=== PATIENT | male | born 1980 | race African-American/Black ===

== ENCOUNTER 2021-06-03 17:39 | Emergency (ER) | payer OTHER, SELFPAY ==
--- NOTE | ~2021-06-03 | CT_ITS ---
EXAMINATION: CT HEAD WITHOUT CONTRAST CLINICAL INFORMATION: New onset seizure. COMPARISON: CT head dated from 05/04/2019. TECHNIQUE: Contiguous axial imaging was performed from the skull base to vertex without intravenous administration of contrast. This CT examination was performed using dose optimization techniques as appropriate, variously including the following: *Automated exposure control *Adjustment of mA and/or kV according to patient size (this includes techniques or standardized protocols for targeted exams where dose is matched to indication/reason for exam; i.e. extremities or head) *Use of iterative reconstruction technique DLP: 692 mGy-cm FINDINGS: Redemonstration of encephalomalacia/gliosis in the left frontal lobe. There is no evidence of acute intracranial hemorrhage or edematous territorial infarction. A few foci of hypoattenuation in the periventricular and deep white matter are consistent with mild microangiopathy. Engle-white matter differentiation is preserved. The ventricles are normal in size and configuration. No evidence for obstructive hydrocephalus. No abnormal mass effect or midline shift. No extra-axial fluid collections. Redemonstration of the small fixation plate in the left frontal skull (3:33). No acute osseous abnormalities. New near complete opacification of the left frontal sinus and left ethmoid air cells. There is also significant mucosal thickening of the left maxillary sinus. To a lesser extent, there is also opacification of some posterior right ethmoid air cells. The mastoids are clear. CT/CT head/brain wo con IMPRESSION: 1. No evidence of acute intracranial hemorrhage or edematous territorial infarction. 2. Encephalomalacia/gliosis in the left anterior frontal lobe is redemonstrated. 3. New paranasal sinus disease. Chronic clinically for the presence of acute sinusitis.
[2021-06-03 18:29] VITALS: BP 144/84; PULSE 102; O2SAT 99
--- NOTE | 2021-06-03 18:34 | ED.SEIZURE ---
HPI - Seizure General Chief Complaint: Seizure Stated Complaint: Seizure? Time Seen by Provider: 06/03/21 18:34 Source: patient Mode of arrival: EMS Limitations: no limitations History of Present Illness HPI Narrative: This is a 40-year-old male no known medical history presents to the emergency department via EMS with concerns that patient had a seizure just prior to his arrival. Patient tells me that the last thing he remembers is sitting in his living room, and then he remembers waking up on ambulance stretcher. He tells me he has had a seizure once before. This seizure was witnessed by his roommate, the story is unclear of whether not patient hit his head. From report received by EMS it appears as though this was a tonic clonic seizure with a brief postictal episodes. Per EMS patient did fall. Patient is now alert and oriented x3. He has no complaints. He tells me he feels okay. He denies drugs, alcohol and tobacco use. Denies trauma to head. MD complaint: seizure Onset (ago): minute(s) (30) Description of Episode: loss of consciousness and tonic-clonic movement Witnessed: Yes - by Other (roommate) Seizure History: Yes (one seziure in the past) Place: Home (Patient was in his living room when this occurred) Possible Precipitating Event: none Associated symptoms: denies other symptoms Treatments prior to arrival: none Related Data Allergies Allergy/AdvReac Type Severity Reaction Status Date / Time No Known Allergies Allergy Unverified 02/07/20 19:47 [No Known Allergies*] Review of Systems Review of Systems: Appearance: Alert.? Oriented X3.? No acute distress.? Head: Normocephalic, atraumatic, no step-offs or deformities Eyes: Pupils equal, round and reactive to light.? ENT: Pharynx normal.? Neck: Normal inspection.? Neck supple.? CVS: Normal heart rate and rhythm.? Pulses normal.? Respiratory: No respiratory distress.? Breath sounds normal.? Abdomen: Soft and nontender.? Skin: Skin warm and dry.? Normal skin color.? Normal skin turgor.? Extremities: No lower extremity edema.? No calf ttp. 5/5 strength to bilateral upper and lower extremities Back: No midline tenderness, no C-spine tenderness, full range of motion, no CVA tenderness bilaterally Neuro: Oriented X 3.? No motor deficit.? No sensory deficit. Yes all other systems are reviewed and are negative [facility] Past Medical History Attestation statement: The following information was validated with the patient. Source: old records reviewed and nursing notes reviewed Social History Social History Advance Directives: No Physical Exam Vital Signs: Vital Signs: Last Vital Signs Temp 98.0 F 06/03/21 18:52 Pulse 75 06/03/21 18:52 Resp 20 06/03/21 18:52 BP 125/88 06/03/21 18:52 Pulse Ox 97 06/03/21 18:52 BMI result Body Mass Index 19.3 vss Appearance: Alert.? Oriented X3.? No acute distress.? Head: Normocephalic, atraumatic, no step-offs or deformities Eyes: Pupils equal, round and reactive to light.? ENT: Pharynx normal.? Neck: Normal inspection.? Neck supple.? CVS: Normal heart rate and rhythm.? Pulses normal.? Respiratory: No respiratory distress.? Breath sounds normal.? Abdomen: Soft and nontender.? Skin: Skin warm and dry.? Normal skin color.? Normal skin turgor.? Extremities: No lower extremity edema.? No calf ttp. 5/5 strength to bilateral upper and lower extremities Back: No midline tenderness, no C-spine tenderness, full range of motion, no CVA tenderness bilaterally Neuro: Oriented X 3.? No motor deficit.? No sensory deficit. Course Reevaluation(s) Reevaluation #1: Laboratory studies do not show an elevated leukocytosis, there is normocytic anemia noted. Platelet count is noted to be low. It has been low in the past. No acute electrolyte abnormalities, transaminases noted to be mildly elevated. Urine with 2+ blood, and 2+ protein. Drug tox positive for marijuana, COVID negative. EKG nonischemic. Unlikely that this seizure was caused by infection. Urine is clean, laboratory studies with no signs of infection. Unlikely that this seizure was caused by illicit drugs. [place] only positive for marijuana. CT of the head shows encephalomalacia/gliosis in the left anterior frontal lobe it appears as though this is been present the past, this is not an acute finding. There is new paranasal sinus disease. However patient has no complaints of acute sinusitis. Patient has not had any additional seizures. He is feeling well, he has no complaints. Alert and oriented x4. I have added an ethanol level at this time. Time: 20:05 Reevaluation #2: Patient denies alcohol use. Ethanol less than 10. Unlikely that this was an alcohol withdrawal seizure. At educated patient that he cannot drive for at least 6 months, or until he is cleared by Neurology or a specialist. I will have him follow up with Neurology as this requires prompt follow-up. I have printed the medical standards for passenger in motorcycle goat driver's license is rules and regulations that tell patient he is unable to drive. I have answered all question, educated him on his diagnosis. MDM - Seizure MDM Narrative Medical decision making narrative: [id number] yo m presents to the ed s/p tonic clonic seizure, BIBA. Patient tells me he has had 1 seizure in the past, he has never had a full workup to look into why he is having the seizures. Denies drugs, alcohol and tobacco. PE benign Plan obtain basic labs, CT of the head/brain, COVID, drug tox, UA. Medical Records Attestation: I reviewed the patient's medical records. Lab Data Attestation: I reviewed the patient's lab results. Result diagrams: 06/03/21 19:28 06/03/21 19:28 Labs: Lab Results 06/03/21 06/03/21 06/03/21 Range/Units 19:28 19:28 19:28 WBC 5.7 (4.8-10.8) X10*3/uL RBC 4.27 L (4.60-5.80) X10*6/uL Hgb 13.3 L (14.0-18.0) g/dl Hct 36.2 L (42.0-52.0) % MCV 84.8 (80.0-98.0) fL MCH 31.1 (27.0-33.0) pg MCHC 36.7 H (31.0-36.0) g/dl RDW 15.8 (11.0-16.0) % Plt Count 47 L (160-400) X10*3/uL MPV 11.0 (9.4-12.4) fL Immature Gran % (Auto) 1.1 H (0.0-0.4) % Neut % (Auto) 77.6 H (45-73) % Lymph % (Auto) 12.3 L (20-40) % Noble % (Auto) 8.8 (2-11) % Eos % (Auto) 0.0 (0-4) % Baso % (Auto) 0.2 (0-2) % Lymph # (Auto) 0.7 L (1.2-4.9) X10*3/uL Noble # (Auto) 0.5 (0.1-1.2) X10*3/uL Eos # (Auto) 0.0 (0.0-0.4) X10*3/uL Baso # (Auto) 0.0 (0.0-0.2) X10*3/uL Abs Immat Gran (auto) 0.06 H (0.00-0.03) X10*3/uL Absolute Neuts (auto) 4.4 (2.0-8.3) x10*3/uL Absolute Nucleated RBC 0.000 (0.0-0.012) X10*3/uL Nucleated RBC % (auto) 0.0 (0.0-0.2) /100WBC Smear Tech's Comments VERIFIED Sodium 137 (135-145) mmol/L Potassium 3.8 (3.3-5.1) mmol/L Chloride 99 (96-108) mmol/L Carbon Dioxide 29 (22-29) mmol/L Anion Gap 13 (12-20) BUN 5 L (9-16) mg/dL Creatinine 0.70 (0.5-1.4) mg/dL Estim Creat Clear Calc 110.1 Estimated GFR > 60 Random Glucose 96 (60-115) mg/dL Calcium 9.0 (8.4-10.2) mg/dL Magnesium 1.8 (1.6-2.6) mg/dL Total Bilirubin 0.7 (0.0-1.0) mg/dL AST 96 H (5-37) U/L ALT 73 H (0-40) U/L Alkaline Phosphatase 75 (39-117) U/L Total Protein 7.0 (6.5-8.0) g/dL Albumin 3.5 (3.5-5.0) g/dL Urine Color Urine Appearance Urine pH (5.0-8.0) Ur Specific [place] (1.005-1.025) Urine Protein (NEG-TRACE) MG/DL Urine Glucose (UA) (NEG) MG/DL Urine Ketones (NEG) MG/DL Urine Blood (NEG) Urine Nitrite (NEG) Ur Leukocyte Esterase (NEG) Urine RBC (0) /HPF Urine WBC (0-4) /HPF Ur Squamous Epith Cells /LPF Urine Bacteria /LPF Hyaline Casts /LPF Urine Mucus /LPF Urine Opiates Screen (Not Detect) Urine Fentanyl Screen (Not Detect) Ur Barbiturates Screen (Not Detect) Ur Phencyclidine Scrn (Not Detect) Ur Amphetamines Screen (Not Detect) U Benzodiazepines Scrn (Not Detect) Urine Cocaine Screen (Not Detect) U Marijuana (THC) Screen (Not Detect) Ethyl Alcohol mg/dL COVID-19 (JOHN) Negative (Negative) COVID-19 Clin Com See Note 06/03/21 06/03/21 06/03/21 Range/Units 19:28 19:28 21:29 WBC (4.8-10.8) X10*3/uL RBC (4.60-5.80) X10*6/uL Hgb (14.0-18.0) g/dl Hct (42.0-52.0) % MCV (80.0-98.0) fL MCH (27.0-33.0) pg MCHC (31.0-36.0) g/dl RDW (11.0-16.0) % Plt Count (160-400) X10*3/uL MPV (9.4-12.4) fL Immature Gran % (Auto) (0.0-0.4) % Neut % (Auto) (45-73) % Lymph % (Auto) (20-40) % Noble % (Auto) (2-11) % Eos % (Auto) (0-4) % Baso % (Auto) (0-2) % Lymph # (Auto) (1.2-4.9) X10*3/uL Noble # (Auto) (0.1-1.2) X10*3/uL Eos # (Auto) (0.0-0.4) X10*3/uL Baso # (Auto) (0.0-0.2) X10*3/uL Abs Immat Gran (auto) (0.00-0.03) X10*3/uL Absolute Neuts (auto) (2.0-8.3) x10*3/uL Absolute Nucleated RBC (0.0-0.012) X10*3/uL Nucleated RBC % (auto) (0.0-0.2) /100WBC Smear Tech's Comments Sodium (135-145) mmol/L Potassium (3.3-5.1) mmol/L Chloride (96-108) mmol/L Carbon Dioxide (22-29) mmol/L Anion Gap (12-20) BUN (9-16) mg/dL Creatinine (0.5-1.4) mg/dL Estim Creat Clear Calc Estimated GFR Random Glucose (60-115) mg/dL Calcium (8.4-10.2) mg/dL Magnesium (1.6-2.6) mg/dL Total Bilirubin (0.0-1.0) mg/dL AST (5-37) U/L ALT (0-40) U/L Alkaline Phosphatase (39-117) U/L Total Protein (6.5-8.0) g/dL Albumin (3.5-5.0) g/dL Urine Color YELLOW Urine Appearance HAZY Urine pH 6.0 (5.0-8.0) Ur Specific [place] >= 1.030 H (1.005-1.025) Urine Protein 2+ H (NEG-TRACE) MG/DL Urine Glucose (UA) NEG (NEG) MG/DL Urine Ketones NEG (NEG) MG/DL Urine Blood 2+ H (NEG) Urine Nitrite NEG (NEG) Ur Leukocyte Esterase NEG (NEG) Urine RBC 5-9 H (0) /HPF Urine WBC 0-2 (0-4) /HPF Ur Squamous Epith Cells TRACE /LPF Urine Bacteria TRACE /LPF Hyaline Casts 0-2 /LPF Urine Mucus 3+ /LPF Urine Opiates Screen Not Detected (Not Detect) Urine Fentanyl Screen Not Detected (Not Detect) Ur Barbiturates Screen Not Detected (Not Detect) Ur Phencyclidine Scrn Not Detected (Not Detect) Ur Amphetamines Screen Not Detected (Not Detect) U Benzodiazepines Scrn Not Detected (Not Detect) Urine Cocaine Screen Not Detected (Not Detect) U Marijuana (THC) Screen POSITIVE H (Not Detect) Ethyl Alcohol < 10 mg/dL COVID-19 (JOHN) (Negative) COVID-19 Clin Com Imaging Data CT scan - head: Attestation: I personally reviewed and interpreted this imaging study as follows: Radiologist's impression: CT/CT head/brain wo con IMPRESSION: 1. No evidence of acute intracranial hemorrhage or edematous territorial infarction. 2. Encephalomalacia/gliosis in the left anterior frontal lobe is redemonstrated. 3. New paranasal sinus disease. Chronic clinically for the presence of acute sinusitis. ECG Data Attestation: I personally reviewed and interpreted this ECG as follows: ECG interpretation date: 06/03/21 ECG interpretation time: 19:17 Prior ECG tracings: available for review Interpretation: Ventricular rate of 78, SD normal, QRS normal, QT/QTC normal. EKG shows normal sinus rhythm with short SD. No ST elevations or inversions, no acute ischemia. No significant changes when compared to EKG from May 04, 2019. Critical Care Time Critical Care Time Critical Care Time: No Discharge Plan Discharge Clinical Impression: Generalized seizure, Thrombopenia, Encephalomalacia Patient Disposition: Home, Self-Care Instructions: Recurrent Seizures in Adults (ED), New-Onset Seizure in Adults (ED) Additional Instructions: Take your medications as prescribed. If you were prescribed antibiotics today, it is important that you take your medication to their entirety, do not skip any doses, do not finish them early. Follow-up with your primary care provider this week. Return to the emergency department with new or worsening symptoms. In case of emergency call 911 Today you are COVID test was negative. Your CT scan showed no acute findings. Your laboratory studies showed that your platelets were low, this will require follow-up with your PCP who will likely check your blood work again. Please refrain from drugs, alcohol and tobacco use. Due to this seizure you are unable to drive for at least 6 months. I have given you information for following up you must see a neurologist who will further look into this. Please return to the emergency department with new or worsening symptoms. I have printed out the rules and regulations that pertain to [place] in regards to seizures and driving. Referrals: Fam Yeager MD [Physician] - 1 day Physician,Alexandr Hobson [Primary Care Provider] - 2 days Stand Alone Forms: Work/School Release
--- NOTE | 2021-06-03 18:36 | ECG_ITS ---
Test Reason : SEIZURE Blood Pressure : / mmHG Vent. Rate : 078 BPM Atrial Rate : 078 BPM P-R Int : 110 ms QRS Dur : 098 ms QT Int : 410 ms P-R-T Axes : 072 060 064 degrees QTc Int : 467 ms Sinus rhythm with short IN Otherwise normal ECG When compared with ECG of 04-MAY-2019 18:58, No significant change was found Referred By: Neela Toscano Electronically Signed By:KATHLEEN CARLOS
[2021-06-03 18:42] VITALS: BP 125/88; PULSE 102; RESP 16; O2SAT 100; BMI 19.3
[2021-06-03] MEDS: LORazepam 1 MG TABLET 2 MG PO (18:47)
[2021-06-03 18:52] VITALS: BP 125/88; PULSE 75; RESP 20; TEMP 36.7; O2SAT 97
[2021-06-03 19:36] LABS: Appearance Urine HAZY; Color Urine YELLOW; Glucose Urine UA NEG (NEG); Hemoglobin 13.3 g/dl (14.0-18.0); Leukocyte Esterase Urine NEG (NEG); Nitrite Urine NEG (NEG); PLT CLUMP 1; SCAN SMEAR FLAG 1; Specific Gravity - Urine >= 1.030 (1.005-1.025); UACC Culture Trigger NO; Urine Blood 2+ (NEG); Urine Ketones NEG (NEG); Urine Protein 2+ MG/DL (NEG-TRACE)
[2021-06-03 19:38] LABS: Basophils Percent Auto 0.2 % (0-2); Hematocrit 36.2 % (42.0-52.0); Imm Gran Abs Auto 0.06 X10*3/uL (0.00-0.03); Imm Gran Pct Auto 1.1 % (0.0-0.4); Lymphocytes Absolute Auto 0.7 X10*3/uL (1.2-4.9); Lymphocytes Percent Auto 12.3 % (20-40); MANUAL DIFF FLAG SCAN; Mean Corpuscular HGB Conc 36.7 g/dl (31.0-36.0); Mean Corpuscular Hemoglobin 31.1 pg (27.0-33.0); Mean Corpuscular Volume 84.8 fL (80.0-98.0); Monocytes Absolute Auto 0.5 X10*3/uL (0.1-1.2); Monocytes Percent Auto 8.8 % (2-11); Neutrophils Absolute Auto 4.4 x10*3/uL (2.0-8.3); Neutrophils Percent Auto 77.6 % (45-73); Red Blood Count 4.27 X10*6/uL (4.60-5.80); Red Cell Distribution Width 15.8 % (11.0-16.0)
[2021-06-03 19:43] LABS: WBC Urine 0-2 /HPF (0-4)
[2021-06-03 19:44] LABS: Bacteria Urine TRACE /LPF; Hyaline Casts Urine 0-2 /LPF; Mucus Urine 3+ /LPF; Squamous Epithelial Cell Urine TRACE /LPF
[2021-06-03 19:53] LABS: Amphetamine Screen Urine Not Detected (Not Detect); Barbiturates, Urine Not Detected (Not Detect); Benzodiazepines Screen Urine Not Detected (Not Detect); COVID-19 Test Negative (Negative); Cannabinoid Screen Urine POSITIVE (Not Detect); Cocaine Screen Urine Not Detected (Not Detect); Fentanyl, urine Not Detected (Not Detect); Opiate Screen Urine Not Detected (Not Detect); Phencyclidine Screen Urine Not Detected (Not Detect); Platelet Count 47 X10*3/uL (160-400); White Blood Count 5.7 X10*3/uL (4.8-10.8)
[2021-06-03 19:54] LABS: SLIDE REVIEW VERIFIED
[2021-06-03 19:56] LABS: Alanine Aminotransferase 73 U/L (0-40); Albumin Level 3.5 g/dL (3.5-5.0); Alkaline Phosphatase 75 U/L (39-117); Anion Gap 13 (12-20); Aspartate Amino Transferase 96 U/L (5-37); Bilirubin Total 0.7 mg/dL (0.0-1.0); Blood Urea Nitrogen 5 mg/dL (9-16); Carbon Dioxide 29 mmol/L (22-29); Chloride 99 mmol/L (96-108); Creatinine Clr Calc Pharmacy 110.1; Estimated Glomerular Filt Rate > 60; Glucose Random 96 mg/dL (60-115); Magnesium 1.8 mg/dL (1.6-2.6); Potassium 3.8 mmol/L (3.3-5.1); Sodium 137 mmol/L (135-145)
[2021-06-03 21:59] LABS: Ethanol < 10 mg/dL
== END 2021-06-03 22:34 | disposition home or self-care (01) ==
LOC: HO.ED 19:36
PROVIDERS: Physician Assistant; Emergency Provider Emergency Medicine
DX: G40.409 Other generalized epilepsy and epileptic syndromes, not intractable, without status epilepticus (principal); D69.6 Thrombocytopenia, unspecified; G93.89 Other specified disorders of brain; F12.90 Cannabis use, unspecified, uncomplicated; Z20.822 Contact with and (suspected) exposure to COVID-19
CPT/HCPCS: 36415; 70450; 80053; 80307; 81001; 82077; 83735; 85025; 87635; 93005; 99283; 99284